=== PATIENT | female | born 1955 | race African-American/Black ===

== ENCOUNTER 2024-07-18 09:07 | Outpatient (CLI) | payer MEDICARE, SELFPAY ==
--- NOTE | 2024-07-18 11:30 | NEURO_ITS ---
Impression: # Complains of pain in lower extremities. ? # Normal Nerve Conduction Study. ? # Normal needle/EMG exam. ? # Clinical correlation recommended. Nerve Conduction Studies Anti Sensory Summary Table ?Stim Site NR Peak (ms) P-T Amp (?V) Site1 Site2 Delta-P (ms) Dist (cm) Flavio (m/s) Left Sup Fibular Anti Sensory (Ant Lat Mall) 14 cm ? 4.0 27.2 14 cm Ant Lat Mall 4.0 16.0 40 Right Sup Fibular Anti Sensory (Ant Lat Mall) 14 cm ? 3.3 17.5 14 cm Ant Lat Mall 3.3 16.0 48 Left Sural Anti Sensory (Lat Mall) Calf ? 3.2 17.8 Calf Lat Mall 3.2 16.0 50 Right Sural Anti Sensory (Lat Mall) Calf ? 3.6 13.7 Calf Lat Mall 3.6 16.0 44 Motor Summary Table ?Stim Site NR Onset (ms) O-P Amp (mV) Site1 Site2 Delta-0 (ms) Dist (cm) Flavio (m/s) Left Peroneal Motor (Vastus Med) Ankle ? 4.5 7.1 Popit Ankle 8.5 41.0 48 Popit ? 13.0 7.0 Right Peroneal Motor (Vastus Med) Ankle ? 4.2 4.9 Popit Ankle 8.5 38.0 45 Popit ? 12.7 3.7 Left Tibial Motor (Abd Gibson Brev) Ankle ? 4.7 6.7 Knee Ankle 8.9 40.0 45 Knee ? 13.6 2.7 Right Tibial Motor (Abd Gibson Brev) Ankle ? 4.7 4.6 Knee Ankle 9.1 40.0 44 Knee ? 13.8 3.2 F Wave Studies ?NR F-Lat (ms) L-R F-Lat (ms) Left Peroneal (Mrkrs) (EDB) ? 52.16 0.60 Right Peroneal (Mrkrs) (EDB) ? 51.56 0.60 Left Tibial (Mrkrs) (Abd Hallucis) ? 52.51 1.29 Right Tibial (Mrkrs) (Abd Hallucis) ? 53.80 1.29 EMG ?Side Muscle Nerve Root Ins Act Fibs Amp Dur Recrt Comment Right AntTibialis Dp Br Fibular L4-5 Nml Nml Nml Nml Nml Right Gastroc Tibial S1-2 Nml Nml Nml Nml Nml Right Fibularis Long Sup Br Fibular L5-S1 Nml Nml Nml Nml Nml Right Flex Dig Long Tibial L5-S2 Nml Nml Nml Nml Nml Right Ext Dig Brev Dp Br Fibular L5, S1 Nml Nml Nml Nml Nml Right QuadratusFem QuadFemoris L4-5, S1 Nml Nml Nml Nml Nml Left AntTibialis Dp Br Fibular L4-5 Nml Nml Nml Nml Nml Left Gastroc Tibial S1-2 Nml Nml Nml Nml Nml Left Fibularis Long Sup Br Fibular L5-S1 Nml Nml Nml Nml Nml Left Flex Dig Long Tibial L5-S2 Nml Nml Nml Nml Nml Left Ext Dig Brev Dp Br Fibular L5, S1 Nml Nml Nml Nml Nml Left QuadratusFem QuadFemoris L4-5, S1 Nml Nml Nml Nml Nml MTDD
== END 2024-07-18 09:08 | disposition home or self-care (01) ==
LOC: ANHNEURO 09:09
PROVIDERS: Visit Provider Internal Medicine
DX: M79.662 Pain in left lower leg (principal); M79.661 Pain in right lower leg
CPT/HCPCS: 95886; 95910

== ENCOUNTER 2025-06-25 16:08 | Outpatient (CLI) | payer MEDICARE, SELFPAY ==
--- NOTE | ~2025-06-25 | MM_ITS ---
EXAMINATION: MM screening [facility] BI w joanne HISTORY: Screening TECHNIQUE: Craniocaudal and mediolateral oblique 3-D tomosynthesis images were obtained and synthetic 2-D images were generated. CAD analysis was submitted and interpreted. COMPARISON: 12/23/2008 BREAST PARENCHYMAL COMPOSITION: Not dense: There are scattered areas of fibroglandular density. FINDINGS: There are multiple benign low-density masses of the left breast, consistent with oil cysts or fat necrosis. There is an intramammary lymph node in the upper outer quadrant of the right breast, posterior third there are focal nodular asymmetries of the right breast in the lower central breast at approximately 5:30 position, middle third.. IMPRESSION: 1. Nodular asymmetries of the right breast. 2. Additional mammographic views and possible breast ultrasound are recommended. BI-RADS Category 0: Incomplete: Needs additional imaging evaluation. Reviewed, dictated and finalized at location O. T BAILIFF IMPRESSION: 1. Nodular asymmetries of the right breast. 2. Additional mammographic views and possible breast ultrasound are recommended . BI-RADS Category 0: Incomplete: Needs additional imaging evaluation.
--- OUTSIDE RECORDS SUMMARY | 2025-06-26 03:35 | XMS_ITS | Clinical Summary ---
Author Organization [facility] Address [address] [place] [id number] Care Team Providers Care Telephone Order Clerk Name Role Phone Danny Arreola MD Primary Care Provider [phone] Medications clotrimazole-be tamethasone (LOTRISONE) cream Apply topically daily. 45 g 2 3 Active gentamicin (GARAMYCIN) 0.1 % cream Apply topically daily. 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 Gender Identity Not on file Sexual Orientation Not on file Plan of Treatment Health Maintenance Due Date Last Done Comments Colorectal Cancer Screening Colonoscopy (10 Years) 1956 Hepatitis C 1974 DTaP, Tdap and Td Vaccines (1 - Tdap) 12/18/1975 Mammogram Screening 1996 Pneumococcal Vaccine: 50+ Years (1 of 1 - PCV) 2006 Zoster Vaccines (1 of 2) 2006 Annual Medicare Wellness Visit 2021 Dexa Scan (General) 2021 COVID-19 Vaccine (2024- season) 2025 06/28/2022, 07/12/2021, 12/04/2020, Additional history exists Influenza Adult (#1) 2025 RSV Immunization or 60+ Years (1 - 1-dose 75+ series) 12/18/2031 Hepatitis A Vaccines Aged Out No long er eligible based on patient's age to complete this topic Meningococcal B Vaccine Aged Out No l onger eligible based on patient's age to complete this topic Meningococcal Vaccine Aged Out No anika ramos eligible based on patient's age to complete this topic RSV Immunizations Under 20 Months Aged Out No longer eligible based on patient's age to complete this topic Insurance [id number] MEDICARE Care Teams Telephone Order Clerk Relationship Specialty Start Date End Date Danny Arreola MD [address] [address] PCP - General INTERNAL MEDICINE 08/06/22
--- OUTSIDE RECORDS SUMMARY | 2025-06-26 03:35 | XMS_ITS | Clinical Summary ---
Author Organization [facility] Address [address] [place] [address] Care Team Providers Care Fixed Capital Clerk Name Role Phone Unavailable Primary Care Provider Unavailabl e Source Comments [facility],non-owned Affiliates and Associated Physician Practices is amultiple site organization consisting of ambulatory clinics and hospital sitesin [place], [place], [place] and [place]. This disclosure is being madepursuant to the Care Everywhere program and may not contain all information available regarding this patient. Last updated 18.[facility] Allergies No known active allergies Social History Tobacco Use Types Packs/Day Years Used Date Smoking Tobacco: Never Assessed AUDIT-C Answer Date Recorded Q1: How often do you have a drink containing alcohol? Never 02/14/2022 Q2: How many drinks containi ng alcohol do you have on a typical day when you are drinking? Patient does not drink Q3: How often do you have si x or more drinks on one occasion? Never 02/14/2022 Comments Unknown Sex and Gender Information Value Date Recorded Sex Assigned at Not on file Legal Sex Female 4:29 PM CDT Gender Identity Not on file Sexual Orientation Not on file Last Filed Vital Signs Vital Sign Reading Time Taken Comments Blood Pressure 138/76 02/15/2022 2:16 AM CDT Pulse 76 02/15/2022 2:16 AM CDT Temperature 36.7 C (98 F) 02/15/2022 2:16 AM CDT Respiratory Rate 20 02/15/2022 2:16 AM CDT Oxygen Saturation 98% 02/15/2022 2:16 AM CDT Inhaled Oxygen Concentration - - Weight 86.2 kg (190 lb) 02/14/2022 4:30 PM CDT Height 157.5 cm (5' 2) 02/14/2022 4:30 PM CDT Body Mass Index 34.75 02/14/2022 4:30 PM CDT Plan of Treatment Health Maintenance Due Date Last Done Comments BONE DENSITY TESTING 1955 COLOGUARD (AGES 45-75) - COL ON CA SCREENING 1956 COLON MONITORING 1956 COLONOSCOPY - COLON CA SCREENING 1956 CT COLONOGRAPHY - COLON CA SCREENING 1956 Colorectal Cancer Screening 1956 FIT - COLON CA SCREENING 1956 FLEX SIG - COLON CA SCREENING 1956 LIPID TESTING 1956 MAMMOGRAM 1956 HEPATITIS C SCREENING 12/13/1974 DTAP/TDAP/TD VACCINES (1 - Tdap) 12/18/1975 PNEUMOCOCCAL VACCINE 50+ (1 of 1 - PCV) 2006 ZOSTER VACCINE (1 of 2) 2006 DEPRESSION SCREENING 08/08/2024 COVID-19 VACCINE (1 - 2024-2 6 season) 2025 INFLUENZA VACCINE (#1) 2025 Respiratory Syncytial Virus (RSV) Vaccine Pt: or over 60 yrs (1 - 1-dose 75+ series) 12/18/2031 HEPATITIS B VACCINE Aged Out No longe r eligible based on patient's age to complete this topic HIB VACCINE Aged Out No longer eligi ble based on patient's age to complete this topic HPV VACCINE Aged Out No longer eligi ble based on patient's age to complete this topic MENINGOCOCCAL (Group B) VACC INE SHARED DECISION-MAKING Aged Out No longer eligibl e based on patient's age to complete this topic MENINGOCOCCAL GROUPS A/C/Y/W VACCINE Aged Out No longer eligible b ased on patient's age to complete this topic Insurance [facility] MANAGED MEDICARE ADV THIRD DEMOCRAT LIABILITY Constitution Party Liability [facility] MANAGED MEDICARE ADV
--- OUTSIDE RECORDS SUMMARY | 2025-06-26 03:35 | XMS_ITS | Clinical Summary ---
Author Organization [facility] Address [address] [place] [id number] Care Team Providers Care Separator Operator Name Role Phone Danny Arreola MD Primary Care Provider Carlos Correa MD Unavailable [phone] Allergies Active Allergy Reactions Criticality Noted Date Comments Quinapril Stomach upset Low 07/15/2022 Medications metoprolol XL (TOPROL-XL) 50 mg extended release tablet Take 1 tablet (50 mg total) by mouth daily 30 tablet 2 Active sevelamer (RENVELA) 800 mg tabletIndications:Tj al Osteodystrophy with Hyperphosphatemia Take 1 tablet (800 mg total) by mouth 3 (three) times a day with meals 90 tablet 2 Active Active Problems Problem Noted Date Diagnosed Date CHF (congestive heart failure) 07/16/2022 Primary hypertension 07/16/2022 Kidney stone 07/16/2022 Acute cystitis 07/16/2022 Acute on chronic systolic congestive heart failu re 07/15/2022 Immunizations Immunization Administration Dates Next Due Influenza, Quadrivalent, Hig h Dose, Preservative Free, Intrr 07/28/2022(Deferred: Patient Refused - pt changed mind) Surgical History Surgery Date Site/Laterality Comments CENTRAL LINE PLACEMENT > 5 YEARS 07/16/2022 N/A TUNNELED LINE PLACEMENT > 5 YEARS 07/21/2022 N/A REMOVE TUNNELED LINE 08/20/2022 Left Social History Tobacco Use Types Packs/Day Years Used Date Smoking Tobacco: Never Passive Smoke Exposure: Never Smokeless Tobacco: Never Tobacco Cessation:Counseling Given: No Social Connection and Isolation Panel Answer Date Recorded In a typical week, how many times do you talk on the phone with family, friends, or neighbors? More than three times a week 07/20/2022 How often do you get togethe r with friends or relatives? More than three times a week 07/20/2022 How often do you attend chur ch or congregational services? Never 07/20/2022 Do you belong to any clubs o r organizations such as lutheran groups, unions, fraternal or athletic groups, or school groups? No 07/20/2022 How often do you attend meet ings of the clubs or organizations you belong to? Never 07/20/2022 Are you , , di vorced, , never , or living with a partner? Never 07/20/2022 Overall Financial Resource Strain (CARDIA) Answe r Date Recorded How hard is it for you to pa y for the very basics like food, housing, medical care, and heating? Not hard at all 07/20/2022 Hunger Vital Sign Answer Date Recorded Within the past 12 months, y ou worried that your food would run out before you got the money to buy more. Never true 07/20/20 22 Within the past 12 months, t he food you bought just didn't last and you didn't have money to get more. Never true 07/20/2022 PRAPARE - Transportation Answer Date Re corded In the past 12 months, has l ack of transportation kept you from medical appointments or from getting medications? No 07/08 In the past 12 months, has l ack of transportation kept you from meetings, work, or from getting things needed for daily living? No 07/20/2022 Housing Stability Vital Sign Answer Graham e Recorded In the last 12 months, was t here a time when you were not able to pay the mortgage or rent on time? No 07/20/2022 In the last 12 months, how many places have you lived? 1 07/20/2022 In the last 12 months, was t here a time when you did not have a steady place to sleep or slept in a residential (including now)? No 07/20/2022 Comments Unknown Sex and Gender Information Value Date Recorded Sex Assigned at Not on file Legal Sex Female 7:02 PM RECREATIONAL PROGRAMS DIRECTOR Gender Identity Not on file Sexual Orientation Not on file Last Filed Vital Signs Vital Sign Reading Time Taken Comments Blood Pressure 119/69 07/28/2022 3:19 PM RECREATIONAL PROGRAMS DIRECTOR Pulse 107 07/28/2022 3:19 PM RECREATIONAL PROGRAMS DIRECTOR Temperature 36.7 C (98.1 F) 07/28/2022 3:19 PM RECREATIONAL PROGRAMS DIRECTOR Respiratory Rate 18 07/28/2022 3:19 PM RECREATIONAL PROGRAMS DIRECTOR Oxygen Saturation 99% 07/28/2022 3:19 PM RECREATIONAL PROGRAMS DIRECTOR Inhaled Oxygen Concentration - - Weight 92.4 kg (203 lb 9.6 oz) 07/24/2022 6:00 A M RECREATIONAL PROGRAMS DIRECTOR Height 157.5 cm (5' 2) 07/15/2022 2:45 PM RECREATIONAL PROGRAMS DIRECTOR Body Mass Index 37.24 07/15/2022 2:45 PM RECREATIONAL PROGRAMS DIRECTOR Plan of Treatment Health Maintenance Due Date Last Done Comments Breast Cancer Screening-Mammogram 1956 Colon Cancer Screening-Colonoscopy 1956 Depression Screening 1956 Osteoporosis Screening-Bone Density Scan 1956 DTaP/Tdap/Td Vaccine (1 - Tdap) 12/18/1967 Pneumococcal vaccine 65+ (1 of 2 - PCV) 12/18/1975 Zoster Vaccine (1 of 2) 2006 Well Visit 65+ 2021 Fall Risk Assessment 07/28/2023 07/28/2022 Covid-19 Vaccine (5 - 2024-2 6 season) 2025 06/28/2022, 07/12/2021, 12/04/2020, Additional history exists Influenza Vaccine (#1) 2025 Hepatitis B Screening Completed 07/16/2022 Hepatitis C Screening Completed 07/16/2022 Medical Devices Implanted Type Area Head Neck Surgeon Device Identifier Shelf Expiration Date Model / Serial / Lot [employer] Duramax Safesheath D-Pro Od15.5 Fr L28 Cm Basic Kit Catheter Dur [id number] - [id number] Implanted:Qty: 1 on 07/21/2022 by Tristan Augustine MD at [facility] [employer] 09/07/2024 [id number] Procedures Procedure Name Priority Date/Time Associated Diagnosis Comments HEPATITIS PANEL, ACUTE Routine 07/16/2022 4:34 AM RECREATIONAL PROGRAMS DIRECTOR from Last 3 Months or Most Recently Relevant to Health Maintenance Results * Hepatitis panel, acute (07/16/2022 4:34 AM RECREATIONAL PROGRAMS DIRECTOR) Hep A IgM Nonreactive Nonreactive [facility] Comment: Interpretive Data: If Hep A IgM Ab is reported as Equivocal, a new sample should be drawn in two weeks for testing. Current interpretive data was last revised on 19. Hep B core IgM Nonreactive Nonreactive [facility] Comment: Interpretive Data If HepB Core IgM Ab is reported as Equivocal, a new sample should be drawn in two weeks for testing. Current interpretive data was last revised on 19. Hep C Ab Nonreactive Nonreactive [facility] Comment: Interpretive Data Nonreactive: Antibodies to HCV not detected. Does NOT exclude the possibility of recent exposure to HCV. Equivocal: Equivocal for HCV antibodies. Supplemental molecular testing will be automatically performed to determine infection status in accordance with current CDC screening recommendations. Reactive: Positive for HCV antibodies. This may represent current or past HCV infection. Supplemental molecular testing will be automatically performed to determine current infection status in accordance with current CDC screening recommendations. Interpretive data was last revised on 2019. HepBsAg Nonreactive Nonreactive [facility] Blood 07/16/2022 4:34 AM RECREATIONAL PROGRAMS DIRECTOR 07/16/2022 4:41 AM RECREATIONAL PROGRAMS DIRECTOR Carlos Correa MD LAB MICROBIOLOGY - GENERAL ORD ERABLES Final Result [facility] [id number] Department of Laboratories [place], [place] [id number] from Last 3 Months or Most Recently Relevant to Health Maintenance [facility] MDCR HMO REF Advance Directives For more information, please contact: [phone] * Full Code (Latest Code Status on File) Date Activated Date Inactivated Comments 07/15/2022 5:12 PM 07/28/2022 8:42 PM Care Teams Separator Operator Relationship Specialty Start Date End Date Danny Arreola MD PCP - General Internal Medicine 07/15/22 Carlos Correa MD Consulting Physician Nephrology 07/27/22
--- OUTSIDE RECORDS SUMMARY | 2025-06-26 03:36 | XMS_ITS ---
Author Organization [facility] Address [address] [place] [address] Care Team Providers Care Vending Machine Attendant Name Role Phone Danny Arreola MD Primary Care Provider Carlos Correa MD Unavailable [phone] Dialysis Access Sites Type Status Location Placement Date Removal Da te Hemodialysis Cath Double 07/21/22 Tunneled catheter Right Internal Jugular Inactive Right Neck (side) - Anterior 07/21/2022 08/20/2022 Hemodialysis Cath Double 07/16/22 Non-tunneled catheter Right Internal Jugular Inactive Right Neck (side) - Anterior 07/16/2022 07/21/2022 Procedures Procedure Name Priority Date/Time Associated Diagnosis Comments HEPATITIS PANEL, ACUTE Routine 07/16/2022 4:34 AM TEST EQUIPMENT MECHANIC from Last 3 Months or Most Recently Relevant to Health Maintenance Allergies Active Allergy Reactions Criticality Noted Date [...] 07/28/2022(Deferred: Patient Refused - pt changed mind) Social History Tobacco Use Types Packs/Day Years [...] often do you attend chur ch or mandaeism services? Never 07/20/2022 Do you belong to any clubs o r organizations such as sikh groups, unions, fraternal or athletic groups, or [...] place to sleep or slept in a halfway (including now)? No 07/20/2022 Comments Unknown Sex and Gender Information Value Date Recorded Sex Assigned at Not on file Legal Sex Female 7:02 PM TEST EQUIPMENT MECHANIC Gender Identity Not on file Sexual Orientation Not on file Last Filed Vital Signs Vital Sign Reading Time Taken Comments Blood Pressure 119/69 07/28/2022 3:19 PM TEST EQUIPMENT MECHANIC Pulse 107 07/28/2022 3:19 PM TEST EQUIPMENT MECHANIC Temperature 36.7 C (98.1 F) 07/28/2022 3:19 PM TEST EQUIPMENT MECHANIC Respiratory Rate 18 07/28/2022 3:19 PM TEST EQUIPMENT MECHANIC Oxygen Saturation 99% 07/28/2022 3:19 PM TEST EQUIPMENT MECHANIC Inhaled Oxygen Concentration - - Weight 92.4 kg (203 lb 9.6 oz) 07/24/2022 6:00 A M TEST EQUIPMENT MECHANIC Height 157.5 cm (5' 2) 07/15/2022 2:45 PM TEST EQUIPMENT MECHANIC Body Mass Index 37.24 07/15/2022 2:45 PM TEST EQUIPMENT MECHANIC Results * Hepatitis panel, acute (07/16/2022 4:34 AM TEST EQUIPMENT MECHANIC) Hep A IgM Nonreactive Nonreactive [facility] Comment: Interpretive Data: If Hep A IgM Ab is reported as Equivocal, a new sample should be drawn in two weeks for testing. Current interpretive data was last revised on 19. Hep B core IgM Nonreactive Nonreactive [facility] Comment: Interpretive Data If HepB Core IgM Ab is reported as Equivocal, a new sample should be drawn in two weeks for testing. Current interpretive data was last revised on 19. Hep C Ab Nonreactive Nonreactive [facility] Comment: Interpretive Data Nonreactive: Antibodies to HCV [...] last revised on 2019. HepBsAg Nonreactive Nonreactive [facility] Blood 07/16/2022 4:34 AM TEST EQUIPMENT MECHANIC 07/16/2022 4:41 AM TEST EQUIPMENT MECHANIC us Carlos Correa MD LAB MICROBIOLOGY - GENERAL ORD ERABLES Final Result [facility] [id number] Department [place] [address] from Last 3 Months or Most Recently Relevant to Health Maintenance
== END 2025-06-25 16:09 | disposition home or self-care (01) ==
LOC: ANHFOHIMG 16:09
DX: Z12.31 Encounter for screening mammogram for malignant neoplasm of breast (principal); R92.8 Other abnormal and inconclusive findings on diagnostic imaging of breast
CPT/HCPCS: 77063; 77067

== ENCOUNTER 2025-07-16 09:59 | Outpatient (CLI) | payer MEDICARE, SELFPAY ==
--- NOTE | ~2025-07-16 | MMUS_ITS ---
EXAMINATION: US breast RT limited, MM diagnostic shauna RT w joanne HISTORY: Additional imaging TECHNIQUE: Craniocaudal and mediolateral oblique 3-D tomosynthesis images were obtained and synthetic 2-D images were generated. CAD analysis was submitted and interpreted. Grayscale sonography over the area(s) of interest with color Doppler if there is a finding. COMPARISON: June 25 BREAST PARENCHYMAL COMPOSITION: Not Dense: There are scattered areas of fibroglandular MAMMOGRAM FINDINGS: One tiny circumscribed nodule persists in the anterior to mid depth at approximately 6:00. There is suggestion of some other tiny nodules, given some convex contours in the region, but no three-dimensional structure can be proven mammographically. There are no suspicious calcifications. No unexplained architectural distortion is seen. There are no skin or nipple abnormalities identified. There is no adenopathy seen on the images submitted. ULTRASOUND FINDINGS: Sonography through the area of mammographic mass demonstrates the presence of a 4 mm cyst. This accounts for the mammographic mass. IMPRESSION: The findings are probably benign. Six-month follow-up right mammogram and right breast ultrasound are recommended. BI-RADS 3 - Probably benign - short-term follow-up is recommended. Reviewed, dictated and finalized at location C. MOTIVE PARTS SALESPERSON IMPRESSION: The findings are probably benign. Six-month follow-up right mammogram and right breast ultrasound are recommended. BI-RADS 3 - Probably benign - short-term follow-up is recommended.
== END 2025-07-16 10:00 | disposition home or self-care (01) ==
LOC: ANHFOHIMG 10:02
PROVIDERS: Visit Provider Internal Medicine
DX: R92.8 Other abnormal and inconclusive findings on diagnostic imaging of breast (principal)
CPT/HCPCS: 76642; 77061; 77065; G0279